=== PATIENT | female | born 1960 | race Caucasian/White ===

== ENCOUNTER 2020-07-20 21:34 | Emergency (ER) | payer BC, SELFPAY ==
[2020-07-20 21:44] VITALS: BP 173/82; PULSE 102; RESP 18; TEMP 36.7; O2SAT 99; BMI 34.0
--- NOTE | 2020-07-20 22:11 | XRR_ITS ---
PROCEDURE INFORMATION: Exam: XR Right Ankle Exam date and time: 07/20/2020 10:25 PM Age: 60 years old Clinical indication: Injury or trauma; Initial encounter; Blunt trauma; Patient HX: Fall, right foot pain TECHNIQUE: Imaging protocol: XR Right ankle. Views: 3 or more views. COMPARISON: CR Ankle 3 views, RIGHT* [id number] 05/15/2017 1:59 PM FINDINGS: Bones/joints: There is a transverse fracture involving the proximal right 5th metatarsal, only partially visualized on the lateral view of this exam. There is no other acute fracture or dislocation. No other significant acute bone or joint abnormality. Small plantar calcaneal spur, slightly larger than on the prior exam. XR/XR ankle RT min 3V* [id number] IMPRESSION: 1. Proximal right 5th metatarsal fracture, see above. 2. Other findings discussed above.
--- NOTE | 2020-07-20 22:11 | XRR_ITS ---
PROCEDURE INFORMATION: Exam: XR Right Foot Complete Exam date and time: 07/20/2020 10:25 PM Age: 60 years old Clinical indication: Injury or trauma; Initial encounter; Blunt trauma; Patient HX: Fall, right foot pain TECHNIQUE: Imaging protocol: XR Right foot. Views: 3 or more views. COMPARISON: CR Ankle 3 views, RIGHT* [id number] 05/15/2017 1:59 PM FINDINGS: Bones/joints: There is a transverse fracture involving the proximal right 5th metatarsal, no significant displacement. There is no other acute fracture or dislocation. No other significant acute bone or joint abnormality. Small plantar calcaneal spur. XR/XR foot RT min 3V* [id number] IMPRESSION: 1. Proximal right 5th metatarsal fracture, see above. 2. Other findings discussed above.
--- NOTE | 2020-07-20 23:21 | W.ED.LOWEXIN ---
HPI - Extremity Injury (Lower) General: Chief Complaint: Fall Stated Complaint: pain in rt foot - fall Time Seen by Provider: 07/20/20 23:21 Source: patient Mode of arrival: wheelchair Limitations: no limitations History of Present Illness: HPI Narrative: Patient is a 60-year-old female who presents to ED today for evaluation of a right foot injury. Patient states she was stepping down a step when her foot inverted. She has been minimal weightbearing since the event. No other injuries sustained at this time. complaint: foot injury Onset (ago): hour(s) Type of Injury: inversion Place: home Severity: moderate Relieving factors: immobilization Exacerbating factors: weight bearing, movement and palpation Other symptoms: none Review of Systems Musc: Reports: extremity pain (R foot pain) Neuro: Denies: numbness in extremities or sensory changes Physical Exam Const: COMMON NORMALS: no acute distress, patient oriented x3, no limitations and alert Extremity: GENERAL: Yes normal exam except as noted OTHER: TTP proximal 5th metatarsal Neuro: COMMON NORMALS: patient oriented x3, moves all extremities, no focal motor deficits and no sensory deficits noted SENSORIUM/ORIENTATION: Yes alert GAIT: Yes Unable to assess gait Course Vital Signs: Vital signs: Vital Signs Temperature 98.0 F 07/20/20 21:44 Pulse Rate 102 H 07/20/20 23:43 Respiratory Rate 17 07/20/20 23:43 Blood Pressure 200/95 07/20/20 23:43 Pulse Oximetry 98 07/20/20 23:43 MDM - Extremity Injury (Lower) MDM Narrative: Medical decision making narrative: will place in surgical shoe, crutches, and follow up with podiatry Imaging Data^: XR R ankle: Radiologist's impression: [address] [address] XRay Report Signed Patient: Alicia Wheeler Unit #: [id number] : 1960 Age/Sex: 60 / F ADM Date: 07/20/20 Loc: ER Room/Bed: Attending Dr: Ordering Provider/Ordering MD: Chrissy Murillo MD Date of Service: 07/20/20 Procedure(s): XR ankle RT min 3V* [id number] Accession Number(s): [id number] Report Number: [id number] PROCEDURE INFORMATION: Exam: XR Right Ankle Exam date and time: 07/20/2020 10:25 PM Age: 60 years old Clinical indication: Injury or trauma; Initial encounter; Blunt trauma; Patient HX: Fall, right foot pain TECHNIQUE: Imaging protocol: XR Right ankle. Views: 3 or more views. COMPARISON: CR Ankle 3 views, RIGHT* [id number] 05/15/2017 1:59 PM FINDINGS: Bones/joints: There is a transverse fracture involving the proximal right 5th metatarsal, only partially visualized on the lateral view of this exam. There is no other acute fracture or dislocation. No other significant acute bone or joint abnormality. Small plantar calcaneal spur, slightly larger than on the prior exam. XR/XR ankle RT min 3V* [id number] IMPRESSION: 1. Proximal right 5th metatarsal fracture, see above. 2. Other findings discussed above. Dictated By: Brendan Brenner MD Signed By: Brendan Brenner MD Signed Date/Time: 07/20/202238 DD/ 36 XR R foot: Radiologist's impression: [address] [address] XRay Report Signed Patient: Alicia Wheeler Unit #: [id number] : 1960 Age/Sex: 60 / F ADM Date: 07/20/20 Loc: ER Room/Bed: Attending Dr: Ordering Provider/Ordering MD: Chrissy Murillo MD Date of Service: 07/20/20 Procedure(s): XR foot RT min 3V* [id number] Accession Number(s): [id number] Report Number: [id number] PROCEDURE INFORMATION: Exam: XR Right Foot Complete Exam date and time: 07/20/2020 10:25 PM Age: 60 years old Clinical indication: Injury or trauma; Initial encounter; Blunt trauma; Patient HX: Fall, right foot pain TECHNIQUE: Imaging protocol: XR Right foot. Views: 3 or more views. COMPARISON: CR Ankle 3 views, RIGHT* [id number] 05/15/2017 1:59 PM FINDINGS: Bones/joints: There is a transverse fracture involving the proximal right 5th metatarsal, no significant displacement. There is no other acute fracture or dislocation. No other significant acute bone or joint abnormality. Small plantar calcaneal spur. XR/XR foot RT min 3V* [id number] IMPRESSION: 1. Proximal right 5th metatarsal fracture, see above. 2. Other findings discussed above. Dictated By: Brendan Brenner MD Signed By: Brendan Brenner MD Signed Date/Time: 07/20/202240 DD/ 38 Discharge Plan Discharge Patient Disposition: Home Clinical Impression: Closed nondisplaced fracture of fifth right metatarsal bone Qualifiers: Encounter type: initial encounter Qualified Code(s): S92.354A - Nondisplaced fracture of fifth metatarsal bone, right foot, initial encounter for closed fracture Condition: Stable Discharge Orders: Discharge Order (Routine); Ordered 07/20/20 Ordered By: Aleah Theodore Referrals: Mason Nicolas MD [Primary Care Provider] - Patient Instructions: Fractures - Metatarsal, Foot Fracture in Adults (ED) Activity Restrictions/Additional Instructions: Case management should contact you on Thursday to set you up with your podiatry appointment for your foot fracture. Continue to wear hard soled shoe. You may use crutches or be weightbearing as tolerated. Coding Level of Care Code ED Talent Consultant for Rosalio Jimenez
[2020-07-20 23:43] VITALS: BP 200/95; PULSE 102; RESP 17; O2SAT 98
[2020-07-21 00:57] VITALS: BP 186/109; PULSE 90; RESP 18; TEMP 36.7; O2SAT 99
--- NOTE | 2020-07-23 11:13 | DCPLANNER ---
it investment/portfolio manager had message to schedule a follow up appointment for patient with ortho. it investment/portfolio manager called the ortho clinic, spoke with Pat, gave clinic patients information. it investment/portfolio manager was told that patients information would be printed and reviewed. Clinic will call patient with appointment information.
--- NOTE | 2020-07-25 15:07 | DCPLANNER ---
Patient had a follow up appointment scheduled for 07.23.20 with ortho - patient did attend the appointment.
== END 2020-07-21 00:57 | disposition home or self-care (01) ==
PROVIDERS: Emergency Provider Physician Assistant; PCP Preventive Medicine Occupational Medicine
DX: S92.354A Nondisplaced fracture of fifth metatarsal bone, right foot, initial encounter for closed fracture (principal); X50.9XXA Other and unspecified overexertion or strenuous movements or postures, initial encounter
CPT/HCPCS: 12345; 29515; 73610; 73630; 99281; 99283; E0114

== ENCOUNTER 2020-07-23 15:12 | Outpatient (CLI) | payer BC, SELFPAY | END 2020-07-23 15:13 | disposition home or self-care (01) | LOC: SPT 15:12 | PROVIDERS: PCP Preventive Medicine Occupational Medicine; Visit Provider Specialist | DX: Z46.89 Encounter for fitting and adjustment of other specified devices (principal); S92.354D Nondisplaced fracture of fifth metatarsal bone, right foot, subsequent encounter for fracture with routine healing; W10.8XXD Fall (on) (from) other stairs and steps, subsequent encounter | CPT/HCPCS: 97760; L4361 ==

== ENCOUNTER → 2020-08-13 13:56 | Outpatient (BNVA) | payer BC, SELFPAY | PROVIDERS: PCP Preventive Medicine Occupational Medicine; Visit Provider Specialist | DX: S92.354A Nondisplaced fracture of fifth metatarsal bone, right foot, initial encounter for closed fracture (principal); X58.XXXA Exposure to other specified factors, initial encounter | CPT/HCPCS: 73630 ==

== ENCOUNTER → 2020-09-05 14:02 | Outpatient (BNVA) | payer BC, SELFPAY | PROVIDERS: PCP Preventive Medicine Occupational Medicine; Visit Provider Specialist | DX: S92.354A Nondisplaced fracture of fifth metatarsal bone, right foot, initial encounter for closed fracture (principal); X58.XXXA Exposure to other specified factors, initial encounter | CPT/HCPCS: 73630 ==